=== PATIENT | female | born 1955 | race Caucasian/White ===

== ENCOUNTER 2016-10-08 17:33 | Emergency (ER) | payer BC ==
[2016-10-08 18:03] VITALS: RESP 16; TEMP 98.2
[2016-10-08 19:25] VITALS: BP 127/64; PULSE 80; O2SAT 97
== END 2016-10-08 18:28 | disposition home or self-care (01) ==
LOC: ED 17:33
DX: S61.012A Laceration without foreign body of left thumb without damage to nail, initial encounter (principal); W45.8XXA Other foreign body or object entering through skin, initial encounter
CPT/HCPCS: 99283